=== PATIENT | male | born 1995 | race Hispanic/Latino ===

== ENCOUNTER 2023-11-18 09:26 | Emergency (ER) | payer SELFPAY | END 2023-11-18 10:51 | disposition home or self-care (01) | LOC: MW.ED 09:26 | DX: S62.631A Displaced fracture of distal phalanx of left index finger, initial encounter for closed fracture (principal); W23.0XXA Caught, crushed, jammed, or pinched between moving objects, initial encounter; Y99.0 Civilian activity done for income or pay | CPT/HCPCS: 73140-26-F1; 73140-F1; 99283 ==

== ENCOUNTER 2023-11-19 11:17 | Emergency (ER) | payer SELFPAY ==
[2023-11-19] MEDS ORDERED: Sodium Chloride 0.9% 2.5 ML Syringe FLUSH PRN (11:54)
[2023-11-19] MEDS ORDERED: Sodium Chloride 0.9% 10 ML Syringe FLUSH PRN (11:54)
[2023-11-19 12:03] LABS: APPEARANCE,URINE CLEAR; BILIRUBIN,URINE NEGATIVE (NEGATIVE); COLOR,URINE YELLOW; GLUCOSE,URINE >=1000 mg/dL (NEGATIVE); KETONES,URINE 15 mg/dL (NEGATIVE); LEUKOCYTE ESTERASE,URINE NEGATIVE (NEGATIVE); NITRITE,URINE NEGATIVE (NEGATIVE); OCCULT BLOOD,URINE NEGATIVE (NEGATIVE); PROTEIN,URINE NEGATIVE (NEGATIVE); UROBILINOGEN,URINE 0.2 EU/dL (<2.0)
[2023-11-19 12:18] LABS: BASOPHILS ABSOLUTE AUTO 0.02 K/uL (0.00-0.20); BASOPHILS PERCENT AUTO 0.3 % (0.0-1.0); EOSINOPHILS ABSOLUTE AUTO 0.03 K/uL (0.00-0.45); EOSINOPHILS PERCENT AUTO 0.5 % (0.0-6.0); HEMATOCRIT 44.5 % (42.0-52.0); HEMOGLOBIN 16.3 g/dL (14.0-18.0); IMMATURE GRAN ABSOLUTE AUTO 0.02 K/uL (0.00-0.05); IMMATURE GRAN PERCENT AUTO 0.3 % (0.0-0.4); LYMPHOCYTES ABSOLUTE AUTO 1.94 K/uL (1.00-4.80); LYMPHOCYTES PERCENT AUTO 32.9 % (24.0-44.0); MEAN CORPUSCULAR HEMOGLOBIN 32.7 pg (28.0-32.0); MEAN CORPUSCULAR HGB CONC 36.6 g/dL (32.0-36.0); MEAN CORPUSCULAR VOLUME 89.4 fL (83.0-99.0); MEAN PLATELET VOLUME 8.9 fL (9.4-12.4); MONOCYTES ABSOLUTE AUTO 0.34 K/uL (0.00-0.80); MONOCYTES PERCENT AUTO 5.8 % (0.0-8.0); NEUTROPHILS ABSOLUTE AUTO 3.54 K/uL (1.80-7.70); NEUTROPHILS PERCENT AUTO 60.2 % (41.0-71.0); PLATELET COUNT,PLT 237 K/uL (150-400); RED BLOOD CELL COUNT 4.98 M/uL (4.52-5.90); WHITE BLOOD CELL COUNT,WBC 5.89 K/uL (3.9-11.3)
[2023-11-19 12:58] LABS: A/G RATIO 1.1 (0.9-1.6); ALBUMIN 4.1 g/dL (3.4-5.0); BILIRUBIN TOTAL 0.6 mg/dL (0.2-1.0); CALCIUM 9.3 mg/dL (8.5-10.1); CARBON DIOXIDE,CO2 25.1 mmol/L (21.0-32.0); CREATININE 0.8 mg/dL (0.8-1.3); EST CRCL DRUG DOSING (CG) 126.23 mL/min; POTASSIUM,K 3.9 mmol/L (3.5-5.1); PROTEIN TOTAL,TP 7.8 g/dL (6.4-8.2)
== END 2023-11-19 13:34 | disposition home or self-care (01) ==
LOC: MW.ED 11:17
DX: N47.6 Balanoposthitis (principal)
CPT/HCPCS: 36415; 80053; 81003; 85025; 99283; J3490

== ENCOUNTER 2024-01-18 21:12 | Emergency (ER) | payer SELFPAY ==
[2024-01-18 21:29] LABS: BASE EXCESS VENOUS 4.2 (-2.0-3.0); BICARBONATE,VENOUS 30 mEq/L (23-28); PCO2 VENOUS 45 mmHG (41-51); PH,VENOUS 7.43 (7.31-7.41)
[2024-01-18] MEDS: Morphine 4 MG/ML Syringe IVPUSH ONE ×2 (21:29→22:31)
[2024-01-18] MEDS: Sodium Chloride 0.9% 10 ML Syringe FLUSH PRN (21:29)
[2024-01-18] MEDS: Lactated Ringers 1,000 ML IV ONE ×2 (21:29→22:31)
[2024-01-18] MEDS: Ondansetron 4 MG/2 ML SDV IVPUSH ONE ×2 (21:29→22:31)
[2024-01-18] MEDS: Famotidine 20 MG/2 ML SDV IVPUSH ONE (21:29)
[2024-01-18] MEDS: Sodium Chloride 0.9% 2.5 ML Syringe FLUSH PRN (21:29)
[2024-01-18 21:30] LABS: BASOPHILS ABSOLUTE AUTO 0.04 K/uL (0.00-0.20); BASOPHILS PERCENT AUTO 0.3 % (0.0-1.0); EOSINOPHILS ABSOLUTE AUTO 0.08 K/uL (0.00-0.45); EOSINOPHILS PERCENT AUTO 0.6 % (0.0-6.0); HEMATOCRIT 47.1 % (42.0-52.0); HEMOGLOBIN 17.3 g/dL (14.0-18.0); IMMATURE GRAN ABSOLUTE AUTO 0.04 K/uL (0.00-0.05); IMMATURE GRAN PERCENT AUTO 0.3 % (0.0-0.4); LYMPHOCYTES PERCENT AUTO 8.8 % (24.0-44.0); MEAN CORPUSCULAR HEMOGLOBIN 32.5 pg (28.0-32.0); MEAN CORPUSCULAR HGB CONC 36.7 g/dL (32.0-36.0); MEAN CORPUSCULAR VOLUME 88.4 fL (83.0-99.0); MEAN PLATELET VOLUME 8.7 fL (9.4-12.4); MONOCYTES ABSOLUTE AUTO 0.61 K/uL (0.00-0.80); MONOCYTES PERCENT AUTO 4.5 % (0.0-8.0); NEUTROPHILS PERCENT AUTO 85.5 % (41.0-71.0); PLATELET COUNT,PLT 234 K/uL (150-400); RED BLOOD CELL COUNT 5.33 M/uL (4.52-5.90); WHITE BLOOD CELL COUNT,WBC 13.57 K/uL (3.9-11.3)
[2024-01-18 21:31] LABS: PO2 VENOUS < 30 mmHG
[2024-01-18 22:00] LABS: A/G RATIO 1.1 (0.9-1.6); ALANINE AMINOTRANSFERASE,ALT 29 IU/L (14-63); ALBUMIN 4.4 g/dL (3.4-5.0); ALKALINE PHOSPHATASE 126 U/L (46-116); ASPARTATE AMNIOTRANSFERASE,AST 16 IU/L (15-37); BILIRUBIN TOTAL 0.7 mg/dL (0.2-1.0); BLOOD UREA NITROGEN,BUN 17 mg/dL (7.0-18.0); CALCIUM 9.5 mg/dL (8.5-10.1); CARBON DIOXIDE,CO2 27.5 mmol/L (21.0-32.0); CHLORIDE,CL 100 mmol/L (98-107); EST CRCL DRUG DOSING (CG) 100.99 mL/min; ESTIMATED GFR 104 mL/min (>60); ETHANOL BLOOD MEDICAL <3 mg/dL; GLUCOSE RANDOM 297 mg/dL (74-106); LIPASE 27 U/L (16-77); POTASSIUM,K 3.6 mmol/L (3.5-5.1); PROTEIN TOTAL,TP 8.4 g/dL (6.4-8.2); SODIUM,NA 140 mmol/L (136-148)
[2024-01-18] MEDS: Pantoprazole 40 MG in Sodium Chloride 0.9% 10 ML IVPUSH ONE (22:31)
[2024-01-18] MEDS: Iopamidol 755 MG/ML 500 ML Multipack Bottle IVPUSH STA (22:45)
== END 2024-01-18 23:45 | disposition home or self-care (01) ==
LOC: MW.ED 21:12
DX: R10.13 Epigastric pain (principal); R11.2 Nausea with vomiting, unspecified; Z79.899 Other long term (current) drug therapy; Z79.4 Long term (current) use of insulin; Z75.8 Other problems related to medical facilities and other health care
CPT/HCPCS: 36415; 74177; 80053; 80307; 82803; 82947; 83690; 84484; 85025; 93005; 96361; 96374; 96375; 96376; 99284; C9113; J2270; J2405; J3490; J7120; Q9967; 93010

== ENCOUNTER 2024-10-03 19:02 | Emergency (ER) | payer SELFPAY ==
[2024-10-03 22:57] LABS: BLOOD UREA NITROGEN,BUN 17 mg/dL (7.0-18.0); CALCIUM 9.2 mg/dL (8.5-10.1); CARBON DIOXIDE,CO2 25.5 mmol/L (21.0-32.0); CHLORIDE,CL 98 mmol/L (98-107); CREATININE 0.8 mg/dL (0.8-1.3); GLUCOSE RANDOM 254 mg/dL (74-106); POTASSIUM,K 4.2 mmol/L (3.5-5.1); SODIUM,NA 134 mmol/L (136-148)
[2024-10-03 23:03] LABS: ESTIMATED GFR 121 mL/min (>60)
== END 2024-10-03 23:31 | disposition home or self-care (01) ==
LOC: MW.ED 19:02
DX: I10 Essential (primary) hypertension (principal); Z79.4 Long term (current) use of insulin; Z75.8 Other problems related to medical facilities and other health care
CPT/HCPCS: 36415; 80048; 84484; 99283